=== PATIENT | female | born 1990 | race Caucasian/White ===

== ENCOUNTER 2016-12-01 11:11 | Emergency (ER) | payer OTHER ==
[2016-12-01 11:56] VITALS: BP 96/56
--- NOTE | 2016-12-01 12:24 | UC ---
Respiratory Complaint HPI - HPI Summary HPI Summary: COUGH X 7 DAYS + CHEST CONGESTION , NASAL CONGESTION , PND, SORE THROAT NO FEVER, NO CHILLS - History of Current Complaint Chief Complaint: UCGeneralIllness Stated Complaint: COUGH,SINUS,EARS Time Seen by Provider: 12/01/16 11:53 Hx Obtained From: Patient Hx Last Menstrual Period: 11/10/16 Onset/Duration: Gradual Onset, Lasting Days - 7, Still Present Timing: Constant Severity Initially: Moderate Severity Currently: Moderate Character: Cough: Nonproductive Aggravating Factors: Exertion, Deep Breaths Alleviating Factors: Nothing Associated Signs And Symptoms: Positive: URI, Nasal Congestion. Negative: Fever , Chills, Wheezing - Allergies/Home Medications Allergies/Adverse Reactions: Allergies Allergy/AdvReac Type Severity Reaction Status Date / Time Amoxicillin Allergy Unknown Verified 04/11/16 10:47 Reaction Details Shellfish Allergy Allergy Itching Verified 06/07/16 20:28 Home Medications: Home Medications Dextromethorphan-Phenylephrine [Day Time Multi-Symptom Co] 1 cap PO Q6HR PRN [History Confirmed 12/01/16] Paroxetine HCl [Paxil] 10 mg PO DAILY 12/01/16 [History Confirmed 12/01/16] PMH/Surg Hx/FS Hx/Imm Hx Respiratory History Of: Reports: Asthma - sports induced Other History Of: Negative For: Anticoagulant Therapy - Surgical History Surgical History: Yes Surgery Procedure, Year, and Place: Ear tubes ,. t/a '96 - Family History Known Family History: Positive: None Negative: Diabetes - Social History Alcohol Use: Rare Substance Use Type: None Smoking Status (MU): Former Smoker When Did the Patient Quit Smoking/Using Tobacco: 7 years ago Review of Systems Constitutional: Negative Skin: Negative Eyes: Negative ENT: Nasal Discharge Respiratory: Cough Cardiovascular: Negative Gastrointestinal: Negative Genitourinary: Negative All Other Systems Reviewed And Are Negative: Yes Physical Exam Triage Information Reviewed: Yes Appearance: Well-Appearing, No Pain Distress, Well-Nourished Vital Signs: Initial Vital Signs Temp 98.0 F 12/01/16 11:40 Pulse 61 12/01/16 11:40 Resp 16 12/01/16 11:40 BP 96/56 12/01/16 11:40 Pulse Ox 100 12/01/16 11:40 Vital Signs Reviewed: Yes Eyes: Positive: Conjunctiva Clear ENT: Positive: Normal ENT inspection, Hearing grossly normal, Pharynx normal, Nasal congestion, Nasal drainage, TMs normal Neck: Positive: Supple, Nontender, No Lymphadenopathy Respiratory: Positive: Chest non-tender, Lungs clear, Normal breath sounds Cardiovascular: Positive: RRR, No Murmur, Pulses Normal UC Diagnostic Evaluation - Laboratory O2 Sat by Pulse Oximetry: 100 Respiratory Course/Dx - Differential Dx/Diagnosis Provider Diagnoses: VIRAL BRONCHITIS Discharge - Discharge Plan Condition: Stable Disposition: HOME Prescriptions: Guaifenesin-Codeine [Cheratussin AC] 10 ml PO Q8H #120 ml MDD 30 ML Patient Education Materials: Acute Bronchitis (ED) Forms: *Work Release Referrals: JEET Dukes [Primary Care Provider] - If Needed
== END 2016-12-01 12:33 | disposition home or self-care (01) ==
LOC: UCCORT 11:11
DX: J20.8 Acute bronchitis due to other specified organisms (principal); Z88.0 Allergy status to penicillin; Z87.891 Personal history of nicotine dependence
CPT/HCPCS: 99212; G0463

== ENCOUNTER 2016-12-28 13:22 | Emergency (ER) | payer OTHER ==
[2016-12-28 14:13] VITALS: BP 109/48
--- NOTE | 2016-12-28 14:44 | UC ---
Back Pain HPI - HPI Summary HPI Summary: lifted heavy crate of bananas today at work, was twisting as she lifted, felt a sudden pull in upper lumbar area. Pain worsened as time went on, now also has a painful "knot" over left scapula. No fall. No prior back injuries. No radiation of pain. - History of Current Complaint Chief Complaint: UCBackPain Stated Complaint: BACK INJURY-WC Time Seen by Provider: 12/28/16 14:34 Hx Obtained From: Patient Hx Last Menstrual Period: 3 weeks ago spotted, mirena ?: No Onset/Duration: Sudden Onset, Lasting Hours - 6 Timing: Constant Severity Initially: Mild Severity Currently: Moderate Back Pain: Is Discrete @ - upper lumbar, bilat; also left scapula Character: Sharp, Aching, Spasmodic, Stiffness Aggravating: Movement, Bending Alleviating: Rest, Position Associated Signs And Symptoms: Positive: Pain with Weight Bearing. Negative: Swelling, Bruising, Fever, Weakness, Numbness, Tingling, Abdominal Pain, Flank Pain, Bladder Incontinence, Bowel Incontinence, Weight Loss Related History: Occupational Injury - Risk Factors AAA Risk Factors: Negative TAD Risk Factors: Negative Cauda Equina Risk Factors: Negative Epidural Abscess Risk Factors: Negative - Allergies/Home Medications Allergies/Adverse Reactions: Allergies Allergy/AdvReac Type Severity Reaction Status Date / Time Amoxicillin Allergy Unknown Verified 12/28/16 14:13 Reaction Details Shellfish Allergy Allergy Itching Verified 12/28/16 14:13 PMH/Surg Hx/FS Hx/Imm Hx Respiratory History Of: Reports: Asthma - sports induced Other History Of: Negative For: Anticoagulant Therapy - Surgical History Surgical History: Yes Surgery Procedure, Year, and Place: Ear tubes ,. t/a '96 - Family History Known Family History: Negative: Diabetes - Social History Occupation: Employed Full-time Lives: With Family Alcohol Use: Rare Substance Use Type: None Smoking Status (MU): Former Smoker When Did the Patient Quit Smoking/Using Tobacco: 7 years ago Review of Systems Constitutional: Negative Skin: Negative Eyes: Negative ENT: Negative Respiratory: Negative Cardiovascular: Negative Gastrointestinal: Negative Genitourinary: Negative Motor: Negative Neurovascular: Negative Musculoskeletal: Arthralgia, Decreased ROM, Myalgia Neurological: Negative Psychological: Negative All Other Systems Reviewed And Are Negative: Yes Physical Exam Triage Information Reviewed: Yes Appearance: Well-Appearing, No Pain Distress, Well-Nourished Vital Signs: Initial Vital Signs Temp 98.5 F 12/28/16 14:10 Pulse 67 12/28/16 14:10 Resp 14 12/28/16 14:10 BP 109/48 12/28/16 14:10 Pulse Ox 99 12/28/16 14:10 Vital Signs Reviewed: Yes Eye Exam: Normal Neck exam: Normal Neck: Positive: Supple, Nontender Respiratory Exam: Normal Cardiovascular Exam: Normal Musculoskeletal Exam: Other - mild tenderness to palpation both lumbar areas. Palpable muscle spasm over left scapula. Limited bending and twisting due to pain. Stiff, slow gait. Hard to get up from chair. Neurological Exam: Normal Psychological Exam: Normal Skin Exam: Normal Diagnostics - Laboratory Diagnostic Studies Completed/Ordered: xray LS spine neg Back Pain Course/Dx - Differential Dx/Diagnosis Differential Diagnosis/HQI/PQRI: Fracture, Herniated Disc, Strain Provider Diagnoses: low back strain Discharge - Discharge Plan Condition: Stable Disposition: HOME Prescriptions: Cyclobenzaprine TAB* [Flexeril TAB*] 10 mg PO TID PRN #30 tab PRN Reason: muscle spasm Tramadol HCl [Ultram] 1 - 2 tab PO TID PRN #30 tab MDD 6 tab PRN Reason: Pain Patient Education Materials: Low Back Strain (ED), Lower Back Exercises (ED) Referrals: JEET Dukes [Primary Care Provider] -
--- NOTE | 2016-12-28 15:01 | RAD ---
HISTORY: Low back pain after lifting COMPARISONS: None VIEWS: 5 , Frontal, lateral, coned-down lateral sacral, and bilateral oblique views of the lumbar spine. FINDINGS: ALIGNMENT: There is mild scoliotic curvature of the spine VERTEBRAL BODIES: The vertebral body heights are normal. The interpedicular distances are normal. JOINTS: The facet joints are normal. INTERVERTEBRAL DISCS: The intervertebral disc heights are normal. SOFT TISSUE: Unremarkable. OTHER: An IUD is noted. The lung bases are clear. IMPRESSION: SCOLIOSIS. NO ACUTE OSSEOUS INJURY.
== END 2016-12-28 15:59 | disposition home or self-care (01) ==
LOC: UCCORT 13:22
DX: S39.012A Strain of muscle, fascia and tendon of lower back, initial encounter (principal); X50.0XXA Overexertion from strenuous movement or load, initial encounter; Y93.89 Activity, other specified; Y92.9 Unspecified place or not applicable; Y99.0 Civilian activity done for income or pay; Z88.0 Allergy status to penicillin; Z87.891 Personal history of nicotine dependence
CPT/HCPCS: 72110; 99212; G0463

== ENCOUNTER 2017-01-02 09:23 | Emergency (ER) | payer OTHER ==
[2017-01-02 10:17] VITALS: BP 101/68
--- NOTE | 2017-01-02 10:36 | UC ---
Back Pain HPI - HPI Summary HPI Summary: follow-up work injury. Lifted a heavy object at work on 12/28, had sudden onset of low back pain that worsened as time went on. Evaluated here that day, L-S spine negative except mild scoliosis. Sent home on Tramadol and Flexeril. She reports that the meds help, but she is still having significant pain and limitation of movement. Does not feel like she can go to work and do any lifting , bending, twisting which is what her job entails. She is trying to do the exercises listed in her discharge pcket, but having a lot of spasm and pain. - History of Current Complaint Chief Complaint: UCBackPain Stated Complaint: BACK PAIN RECHECK Time Seen by Provider: 01/02/17 10:12 Hx Obtained From: Patient Hx Last Menstrual Period: Beginning of Dec. Onset/Duration: Gradual Onset, Lasting Days - 5 Timing: Constant Severity Initially: Mild Severity Currently: Moderate Back Pain: Is Discrete @ - upper lumbar; recently she feels pain and spasm up higher, between shoulder blades as well Character: Aching, Spasmodic, Stiffness Aggravating: Movement, Lifting, Bending Alleviating: Rest, Heat Associated Signs And Symptoms: Positive: Pain with Weight Bearing. Negative: Swelling, Redness, Bruising, Fever, Weakness, Numbness, Tingling, Abdominal Pain , Flank Pain, Bladder Incontinence, Bowel Incontinence, Weight Loss - Risk Factors AAA Risk Factors: Negative TAD Risk Factors: Negative Cauda Equina Risk Factors: Negative Epidural Abscess Risk Factors: Negative - Allergies/Home Medications Allergies/Adverse Reactions: Allergies Allergy/AdvReac Type Severity Reaction Status Date / Time Amoxicillin Allergy Unknown Verified 01/02/17 10:17 Reaction Details Shellfish Allergy Allergy Itching Verified 01/02/17 10:17 PMH/Surg Hx/FS Hx/Imm Hx Respiratory History Of: Reports: Asthma - sports induced Other History Of: Negative For: Anticoagulant Therapy - Surgical History Surgical History: Yes Surgery Procedure, Year, and Place: Ear tubes ,. t/a - Family History Known Family History: Negative: Diabetes - Social History Occupation: Employed Full-time Lives: With Family Alcohol Use: Rare Substance Use Type: None Smoking Status (MU): Former Smoker When Did the Patient Quit Smoking/Using Tobacco: 7 years ago Review of Systems Constitutional: Negative Skin: Negative Eyes: Negative ENT: Negative Respiratory: Negative Cardiovascular: Negative Gastrointestinal: Negative Genitourinary: Negative Motor: Negative Neurovascular: Negative Musculoskeletal: Arthralgia, Decreased ROM, Myalgia Neurological: Negative Psychological: Negative All Other Systems Reviewed And Are Negative: Yes Physical Exam Triage Information Reviewed: Yes Appearance: Well-Appearing, No Pain Distress, Well-Nourished Vital Signs: Initial Vital Signs Temp 97.9 F 01/02/17 10:09 Pulse 78 01/02/17 10:09 Resp 16 01/02/17 10:09 BP 101/68 01/02/17 10:09 Vital Signs Reviewed: Yes Eye Exam: Normal Neck exam: Normal Neck: Positive: Supple, Nontender Respiratory Exam: Normal Cardiovascular Exam: Normal Musculoskeletal Exam: Other - mild tenderness to palpation of bilat lumbar muscles. Palpable muscle tightness. Also tight up between scapulae. Hurts to bend, twist. STiff gait. Hard to get up from chair Neurological Exam: Normal Psychological Exam: Normal Skin Exam: Normal Back Pain Course/Dx - Course Course Of Treatment: refer to chiropractor; off work for 1 week - Differential Dx/Diagnosis Differential Diagnosis/HQI/PQRI: Strain, Sprain Provider Diagnoses: low back strain Discharge - Discharge Plan Condition: Stable Disposition: HOME Prescriptions: Cyclobenzaprine TAB* [Flexeril TAB*] 10 mg PO TID PRN #20 tab PRN Reason: back spasms Tramadol HCl [Ultram] 1 - 2 tab PO Q6HR PRN #30 tab MDD 6 tab PRN Reason: Pain Patient Education Materials: Low Back Strain (ED) Forms: *Work Release Referrals: JEET Dukes [Primary Care Provider] - Dakota SALAS,Lorenzo Armas [Doctor of Chiropractic] -
== END 2017-01-02 10:41 | disposition home or self-care (01) ==
LOC: UCCORT 09:23
DX: S39.012D Strain of muscle, fascia and tendon of lower back, subsequent encounter (principal); X50.0XXD Overexertion from strenuous movement or load, subsequent encounter; Z88.1 Allergy status to other antibiotic agents; Z87.891 Personal history of nicotine dependence
CPT/HCPCS: 99212; G0463

== ENCOUNTER 2017-01-10 09:36 | Emergency (ER) | payer OTHER ==
[2017-01-10 09:47] VITALS: BP 95/62
--- NOTE | 2017-01-10 09:58 | UC ---
Back Pain HPI - HPI Summary HPI Summary: 12/28 and 01/02 patient was seen here for back injury at work after lifting a heavy box on 12/28. She returned to work yesterday and within 2 hours her upper and lower back pain increased 7/10 and reports 9/10 pain last night. Report radiation to right glute. Difficult time sleeping last night. No fevers or chills. Denies numbness or tingling. No incontinence. She has been seeing a chiropractor 2-3 x/week and reports improvement. Reports job is all lifting and must be able to lift 30lbs to be able to return to work. - History of Current Complaint Chief Complaint: UCBackPain Stated Complaint: RE-CHECK BACK W/C Time Seen by Provider: 01/10/17 09:56 Hx Obtained From: Patient Hx Last Menstrual Period: 01/05/17 Onset/Duration: Sudden Onset - 10 days ago Pain Intensity: 6 Pain Scale Used: 0-10 Numeric Character: Dull, Aching, Throbbing, Spasmodic Aggravating: Movement, Lifting, Bending Alleviating: Rest, Heat, OTC Meds Associated Signs And Symptoms: Positive: Negative Related History: Occupational Injury - Risk Factors AAA Risk Factors: Negative TAD Risk Factors: Negative Cauda Equina Risk Factors: Negative Epidural Abscess Risk Factors: Negative - Allergies/Home Medications Allergies/Adverse Reactions: Allergies Allergy/AdvReac Type Severity Reaction Status Date / Time Amoxicillin Allergy Unknown Verified 01/02/17 10:17 Reaction Details Shellfish Allergy Allergy Itching Verified 01/02/17 10:17 PMH/Surg Hx/FS Hx/Imm Hx Previously Healthy: Yes Respiratory History Of: Reports: Asthma - sports induced Other History Of: Negative For: Anticoagulant Therapy - Surgical History Surgical History: Yes Surgery Procedure, Year, and Place: Ear tubes ,. t/a - Family History Known Family History: Negative: Diabetes - Social History Occupation: Employed Full-time Alcohol Use: Rare Substance Use Type: None Smoking Status (MU): Former Smoker Have You Smoked in the Last Year: No When Did the Patient Quit Smoking/Using Tobacco: 7 years ago - Immunization History Hx Tetanus, Diphtheria Vaccination: Yes Vaccination Up to Date: Yes Review of Systems Constitutional: Other - upper nad lower back pain Skin: Negative Eyes: Negative ENT: Negative Respiratory: Negative Cardiovascular: Negative Gastrointestinal: Negative Genitourinary: Negative Motor: Negative Neurovascular: Negative Musculoskeletal: Decreased ROM Neurological: Negative Psychological: Negative All Other Systems Reviewed And Are Negative: Yes Physical Exam Triage Information Reviewed: Yes Appearance: Well-Appearing, Well-Nourished, Pain Distress - mild Vital Signs: Initial Vital Signs Temp 97.9 F 01/10/17 09:42 Pulse 91 01/10/17 09:42 Resp 16 01/10/17 09:42 BP 95/62 01/10/17 09:42 Pulse Ox 100 01/10/17 09:42 Vital Signs Reviewed: Yes Neck: Positive: Supple, Nontender, No Lymphadenopathy Respiratory: Positive: Chest non-tender, Lungs clear, Normal breath sounds, No respiratory distress, No accessory muscle use Cardiovascular: Positive: RRR, No Murmur, Pulses Normal, Brisk Capillary Refill Musculoskeletal: Positive: Strength Intact, No Edema, ROM Limited @ - guarded with flexion and extension but has almost full ROM. Tender to trapezius bilateral, spasms palpated, sacral tenderness. strength LE 5/5 throughout. Good sensation. Neurological: Positive: Alert Psychological Exam: Normal Skin Exam: Normal Back Pain Course/Dx - Course Course Of Treatment: 1. Re-check Back injury, returned to work yesterday and was unable to tolerate lifting. Plan for rest, cold, hot compresses, epsom salt baths, continue chiropractor and refer to PT. Return to work 6 days. - Differential Dx/Diagnosis Provider Diagnoses: 1. Re-check back injury. Low back strain with upper back spasms. Plan rest, refer to physical therapy. no work until 01/16/17 Discharge - Discharge Plan Condition: Stable Disposition: HOME Patient Education Materials: Low Back Strain (ED), Lower Back Exercises (ED) Forms: *Work Release Referrals: JEET Gonzáles [Primary Care Provider] - (please follow up within 1 week. ) Additional Instructions: . Continue to rest, hot and cold packs, epsom salt baths DAILY. Daily gentle exercises. If you develop any worsening or concerning symptoms suck as numbness, tingling, weakness, urinary or fecal incontinence, fever or chills - return to urgent care , see your primary or go to the emergency department. You have been referred to physical therapy.
== END 2017-01-10 10:33 | disposition home or self-care (01) ==
LOC: UCCORT 09:36
DX: S39.012D Strain of muscle, fascia and tendon of lower back, subsequent encounter (principal); X50.0XXD Overexertion from strenuous movement or load, subsequent encounter; X50.9XXD Other and unspecified overexertion or strenuous movements or postures, subsequent encounter; M62.830 Muscle spasm of back; Z88.1 Allergy status to other antibiotic agents; Z87.891 Personal history of nicotine dependence
CPT/HCPCS: 99211; G0463

== ENCOUNTER 2017-01-30 10:14 | Emergency (ER) | payer OTHER ==
--- NOTE | 2017-01-30 10:41 | UC ---
Back Pain HPI - HPI Summary HPI Summary: complaint of lower back pain that started 12/28/16 after lifting lifting case of bananas at work at [employer] seen at urgent care several times when she is not working pain is managable 12/16 and can take NSAIDS if she has an acitve day or works the pain increases pain is in lower back and is an aching pain that radiates into either leg sometimes radiates into upper back denies numbness and tingling in extremities denies incontinence and fever taking NSAIDS, occasional tramadol anf flexeril when not at work with some relief didn't go to physical therapy because her worker.s comp wont pay for chiropracter and PT simultaneously has been getting chiropractic treatments 2x week without effect. - History of Current Complaint Chief Complaint: UCBackPain Stated Complaint: RE CHECK BACK PAIN-WC Time Seen by Provider: 01/30/17 10:29 Hx Obtained From: Patient Hx Last Menstrual Period: 01/04/17 Aggravating: Movement, Lifting Alleviating: Rest, OTC Meds Associated Signs And Symptoms: Positive: Negative - Allergies/Home Medications Allergies/Adverse Reactions: Allergies Allergy/AdvReac Type Severity Reaction Status Date / Time Amoxicillin Allergy Intermediate Rash And Verified 01/30/17 10:29 Itching Shellfish Allergy Allergy Itching Verified 01/30/17 10:29 PMH/Surg Hx/FS Hx/Imm Hx Previously Healthy: No - lower back pain Respiratory History Of: Reports: Asthma - sports induced Other History Of: Negative For: Anticoagulant Therapy - Surgical History Surgical History: Yes Surgery Procedure, Year, and Place: Ear tubes ,. t/a - Family History Known Family History: Negative: Diabetes - Social History Occupation: Employed Full-time Lives: With Family Alcohol Use: Rare Substance Use Type: None Smoking Status (MU): Former Smoker Length of Time of Smoking/Using Tobacco: 2 yrs Have You Smoked in the Last Year: No When Did the Patient Quit Smoking/Using Tobacco: 2009 - Immunization History Hx Tetanus, Diphtheria Vaccination: Yes Vaccination Up to Date: Yes Review of Systems Constitutional: Negative Skin: Negative Eyes: Negative ENT: Negative Respiratory: Negative Cardiovascular: Negative Gastrointestinal: Negative Genitourinary: Negative Motor: Negative Musculoskeletal: Other: - lower back pain Neurological: Negative Psychological: Negative All Other Systems Reviewed And Are Negative: Yes Physical Exam Triage Information Reviewed: Yes Appearance: No Pain Distress, Well-Nourished Vital Signs: Initial Vital Signs Temp 98 F 01/30/17 10:20 Pulse 78 01/30/17 10:20 Resp 14 01/30/17 10:20 BP 101/74 01/30/17 10:20 Pulse Ox 100 01/30/17 10:20 Vital Signs Reviewed: Yes Eyes: Positive: Conjunctiva Clear ENT: Positive: Pharynx normal, TMs normal Neck: Positive: No Lymphadenopathy, Other: - no cspine tenderness Respiratory: Positive: Lungs clear, Normal breath sounds, No respiratory distress Cardiovascular: Positive: RRR, No Murmur, Pulses Normal Abdomen Description: Positive: Nontender, Soft Bowel Sounds: Positive: Present Musculoskeletal: Positive: No Edema, Other: - Spine have no noted deformities or signs of inflammation. Curvature of thoracic, and lumbar spine are within normal limits. Bony features of shoulders and hips are of equal height bilaterally. Posture is upright, and gait is smooth and normal. Spinous processes of T1-L5 palpable, midline, and non-tender; No step-offs. lumbar paraspinal tenderness right worse than left limited ROM- Flexion, extension, and rotation and lateral movement ot the right causes pain. Neurological: Positive: Alert, Other: - negative SLR patellar reflexes intact equla strength in BLE Psychological Exam: Normal Skin Exam: Normal Back Pain Course/Dx - Course Course Of Treatment: exam completed. will refer to PT for further evaluation and treatment. refer to orthopedics if no improvement. no red flags to warrant imaging. continue flexeril NSAIDS/ trmamdol when needed - Differential Dx/Diagnosis Differential Diagnosis/HQI/PQRI: Herniated Disc, Strain, Sprain Provider Diagnoses: lower back pain with radiculopathy Discharge - Discharge Plan Condition: Stable Disposition: HOME Prescriptions: Cyclobenzaprine TAB* [Flexeril 10 MG TAB*] 10 mg PO TID PRN #30 tab PRN Reason: muscle spasm Tramadol HCl [Ultram] 1 - 2 tab PO TID PRN #30 tab MDD 6 tab PRN Reason: Pain Patient Education Materials: Lumbar Radiculopathy (ED) Forms: *Work Release Referrals: JEET Dukes [Primary Care Provider] - Olivier Lima MD [Medical Doctor] - Additional Instructions: Start flexeril as directed. Do not drink alcohol or drive while taking flexeril. Please call physical therapy for further evaluation and treatment. If no improvement please contact insurance account specialist for further evaluation. Take ibuprofen for fever or pain. Increase fluids and rest. Please review your discharge instructions. If your symptoms do not improve please call your primary care provider or return to urgent care.
[2017-01-30 10:50] VITALS: BP 101/74
== END 2017-01-30 11:02 | disposition home or self-care (01) ==
LOC: UCCORT 10:14
DX: M54.5 Low back pain (principal); M54.16 Radiculopathy, lumbar region; Z88.1 Allergy status to other antibiotic agents; Z87.891 Personal history of nicotine dependence
CPT/HCPCS: 99212; G0463

== ENCOUNTER 2017-03-31 15:25 | Emergency (ER) | payer OTHER ==
[2017-03-31 15:59] VITALS: BP 100/64
--- NOTE | 2017-03-31 16:53 | UC ---
Eye Complaint HPI - HPI Summary HPI Summary: LEFT EYE REDNESS EYE DISCHARGE AND UPPER LID SWELLING FOR TWO DAYS. MILD CONGESTION. NO FEVER. NO PAIN WITH EYE MOVEMENT. - History of Current Complaint Chief Complaint: UCEye Stated Complaint: LFT EYE IRRITATION Time Seen by Provider: 03/31/17 16:11 Hx Obtained From: Patient Hx Last Menstrual Period: 03/09/17 Onset/Duration: Gradual Onset, Lasting Days, Still Present Timing: Constant Severity Initially: Mild Severity Currently: Mild Location of Injury: Conjunctiva, Eye Lid (upper) Character: Dull Aggravating Factor(s): Nothing Alleviating Factor(s): Nothing Associated Signs And Symptoms: Positive: Drainage (Purulent), Swelling - UPPER LEFT LID. Negative: Vision Impairment Right, Vision Impairment Left, Fever - Risk Factors Penetrating Injury Risk Factor: Negative Acute Glaucoma Risk Factors: Negative Optic Artery Occlusion Risk Factors: Negative - Allergies/Home Medications Allergies/Adverse Reactions: Allergies Allergy/AdvReac Type Severity Reaction Status Date / Time Amoxicillin Allergy Intermediate Rash And Verified 03/31/17 15:59 Itching Shellfish Allergy Allergy Itching Verified 03/31/17 15:59 Home Medications: Home Medications Diclofenac [Zorvolex] 75 mg PO BID 03/31/17 [History Confirmed 03/31/17] Tizanidine HCl 4 mg PO TID 03/31/17 [History Confirmed 03/31/17] PMH/Surg Hx/FS Hx/Imm Hx Previously Healthy: Yes Respiratory History Of: Reports: Asthma - sports induced Other History Of: Negative For: Anticoagulant Therapy - Surgical History Surgical History: Yes Surgery Procedure, Year, and Place: Ear tubes ,. t/a - Family History Known Family History: Negative: Diabetes - Social History Occupation: Employed Full-time Lives: With Family Alcohol Use: Rare Substance Use Type: None Smoking Status (MU): Former Smoker Length of Time of Smoking/Using Tobacco: 2 yrs Have You Smoked in the Last Year: No When Did the Patient Quit Smoking/Using Tobacco: 7 years ago - Immunization History Hx Tetanus, Diphtheria Vaccination: Yes Vaccination Up to Date: Yes Review of Systems Constitutional: Negative Skin: Other - LEFT UPPER LID SELLING REDNESS Eyes: Eye Redness ENT: Negative Respiratory: Negative Cardiovascular: Negative Gastrointestinal: Negative Genitourinary: Negative Motor: Negative Neurovascular: Negative Musculoskeletal: Negative Neurological: Negative Psychological: Negative All Other Systems Reviewed And Are Negative: Yes Physical Exam Triage Information Reviewed: Yes Appearance: Well-Appearing, No Pain Distress, Well-Nourished Vital Signs: Initial Vital Signs Temp 98.8 F 03/31/17 15:50 Pulse 63 03/31/17 15:50 Resp 20 03/31/17 15:50 BP 100/64 03/31/17 15:50 Vital Signs Reviewed: Yes Eyes: Positive: Conjunctiva Inflamed - LEFT ENT: Positive: Normal ENT inspection, Hearing grossly normal, Nasal congestion, TMs normal Dental Exam: Normal Neck exam: Normal Neck: Positive: Supple, Nontender, No Lymphadenopathy Respiratory Exam: Normal Respiratory: Positive: Chest non-tender, Lungs clear, Normal breath sounds, No respiratory distress, No accessory muscle use Cardiovascular Exam: Normal Cardiovascular: Positive: RRR, No Murmur Abdominal Exam: Normal Musculoskeletal Exam: Normal Musculoskeletal: Positive: Strength Intact, ROM Intact Neurological Exam: Normal Psychological Exam: Normal Skin Exam: Normal Eye Complaint Course/Dx - Differential Dx/Diagnosis Differential Diagnosis/HQI/PQRI: Conjunctivitis, Corneal Abrasion, Periorbital Cellulitis, Uveitis, Other - STYE Provider Diagnoses: LEFT CONJUNCTIVITIS; LEFT UPPER LID STYE Discharge - Discharge Plan Condition: Stable Disposition: HOME Prescriptions: Azithromycin TAB* [Zithromax TAB (Z-AWAIS) 250 mg #6 tabs] 2 tab PO .TODAY, THEN 1 DAILY #1 awais Erythromycin OPTH OINT* 1 applic LEFT EYE TID #1 ophth.oint Patient Education Materials: Stye (ED), Conjunctivitis (ED) Referrals: JEET Dukes [Primary Care Provider] -
== END 2017-03-31 16:49 | disposition home or self-care (01) ==
LOC: UCCORT 15:25
DX: H10.9 Unspecified conjunctivitis (principal); H00.014 Hordeolum externum left upper eyelid; Z87.891 Personal history of nicotine dependence; Z88.1 Allergy status to other antibiotic agents
CPT/HCPCS: 99212; G0463

== ENCOUNTER 2017-09-20 08:32 | Emergency (ER) | payer OTHER ==
[2017-09-20 08:54] VITALS: BP 107/69
[2017-09-20] MEDS ORDERED: Acetaminophen TAB* 325 MG PO ONE (09:15)
--- NOTE | 2017-09-20 09:20 | UC ---
Respiratory Complaint HPI - HPI Summary HPI Summary: Congestion and myalgias since yesterday. She is healthy. Non smoker. no lung disease. - History of Current Complaint Chief Complaint: UCRespiratory Stated Complaint: FLU SXS Time Seen by Provider: 09/20/17 08:57 Hx Obtained From: Patient Hx Last Menstrual Period: 09/06/17 Onset/Duration: Gradual Onset, Lasting Hours Timing: Constant Severity Initially: Moderate Severity Currently: Moderate Character: Cough: Nonproductive Aggravating Factors: Deep Breaths, Recumbent Position Alleviating Factors: OTC Meds Associated Signs And Symptoms: Positive: URI, Nasal Congestion - Allergies/Home Medications Allergies/Adverse Reactions: Allergies Allergy/AdvReac Type Severity Reaction Status Date / Time Amoxicillin Allergy Intermediate Rash And Verified 09/20/17 08:48 Itching Shellfish Allergy Allergy Itching Verified 09/20/17 08:48 PMH/Surg Hx/FS Hx/Imm Hx Previously Healthy: Yes Other History Of: Negative For: Anticoagulant Therapy - Surgical History Surgical History: Yes Surgery Procedure, Year, and Place: Ear tubes ,. t/a - Family History Known Family History: Negative: Diabetes - Social History Lives: With Family Alcohol Use: Rare Substance Use Type: None Smoking Status (MU): Former Smoker Length of Time of Smoking/Using Tobacco: 2 yrs Have You Smoked in the Last Year: No When Did the Patient Quit Smoking/Using Tobacco: 7 years ago - Immunization History Most Recent Influenza Vaccination: not this season Hx Tetanus, Diphtheria Vaccination: Yes Vaccination Up to Date: Yes Review of Systems Constitutional: Fever, Fatigue Respiratory: Cough All Other Systems Reviewed And Are Negative: Yes Physical Exam Triage Information Reviewed: Yes Appearance: Well-Appearing, No Pain Distress, Well-Nourished Vital Signs: Initial Vital Signs Temp 98.9 F 09/20/17 08:49 Pulse 95 09/20/17 08:49 Resp 20 09/20/17 08:49 BP 107/69 09/20/17 08:49 Pulse Ox 100 09/20/17 08:49 Vital Signs Reviewed: Yes Eye Exam: Normal Eyes: Positive: Conjunctiva Clear ENT: Positive: Pharynx normal, Nasal congestion, TMs normal, Uvula midline. Negative: Pharyngeal erythema, Nasal drainage, TM bulging, TM dull, TM red, Tonsillar swelling, Tonsillar exudate, Trismus, Muffled voice, Hoarse voice, Dental tenderness, Sinus tenderness Neck: Positive: Supple, Nontender, No Lymphadenopathy. Negative: Nuchal Rigidity, Tenderness @, Enlarged Nodes @ Respiratory: Positive: Lungs clear, Normal breath sounds, No respiratory distress, No accessory muscle use. Negative: Respiratory distress, Decreased breath sounds, Accessory muscle use, Crackles, Rhonchi, Stridor, Wheezing Cardiovascular: Positive: RRR, No Murmur, Pulses Normal, Brisk Capillary Refill Abdomen Description: Positive: Soft. Negative: Distended, Guarding Musculoskeletal Exam: Normal Musculoskeletal: Positive: Strength Intact. Negative: ROM Intact, No Edema Neurological: Positive: Alert, Muscle Tone Normal Skin Exam: Normal Skin: Negative: rashes UC Diagnostic Evaluation - Laboratory O2 Sat by Pulse Oximetry: 100 Respiratory Course/Dx - Differential Dx/Diagnosis Provider Diagnoses: uri. viral illness. Discharge - Discharge Plan Condition: Good Disposition: HOME Patient Education Materials: Upper Respiratory Infection (ED) Referrals: JEET Dukes [Primary Care Provider] -
== END 2017-09-20 09:27 | disposition home or self-care (01) ==
LOC: UCCORT 08:32
DX: J06.9 Acute upper respiratory infection, unspecified (principal); B34.9 Viral infection, unspecified; Z88.1 Allergy status to other antibiotic agents; Z87.891 Personal history of nicotine dependence
CPT/HCPCS: 87502; 99211; A9270-GY; G0463

== ENCOUNTER 2018-01-28 07:27 | Emergency (ER) | payer OTHER ==
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
[2018-01-28 07:40] VITALS: BP 99/66
[2018-01-28] MEDS ORDERED: Ondansetron ODT TAB* 4 MG PO ONE (07:47)
--- NOTE | 2018-01-28 08:00 | UC ---
Abdominal Pain Male HPI - HPI Summary HPI Summary: 27 yo female with n/v/d since last PM 2 episodes of diarrhea 3 episodes of vomiting crampy abd pain minutes prior to vomiting but no pain otherwise here requesting work note no f/c mild headache or myalgias no UTI symptoms - History of Current Complaint Chief Complaint: UCGeneralIllness Stated Complaint: VOMITING Time Seen by Provider: 01/28/18 07:40 Hx Obtained From: Patient Onset/Duration: Gradual Onset, Lasting Hours Timing: Constant Severity Initially: Mild Severity Currently: Mild Pain Intensity: 0 - pain free at present Pain Scale Used: 0-10 Numeric Location: Diffuse Radiates: No Character: Cramping Aggravating Factor(s): Food Alleviating Factor(s): Rest Associated Signs And Symptoms: Positive: Decreased Appetite, Nausea, Vomiting, Diarrhea - Allergies/Home Medications Allergies/Adverse Reactions: Allergies Allergy/AdvReac Type Severity Reaction Status Date / Time amoxicillin Allergy Rash And Verified 01/28/18 07:34 Itching shellfish derived Allergy Itching Verified 01/28/18 07:34 Home Medications: Home Medications Baclofen TAB* [Lioresal TAB*] 20 mg PO TID 01/28/18 [History Confirmed 01/28/18 ] Nabumetone 01/28/18 [History] PMH/Surg Hx/FS Hx/Imm Hx Previously Healthy: Yes Other History Of: Negative For: Anticoagulant Therapy - Surgical History Surgical History: Yes Surgery Procedure, Year, and Place: Ear tubes ,. t/a - Family History Known Family History: Negative: Cardiac Disease, Hypertension, Diabetes, Renal Disease - Social History Alcohol Use: Rare Substance Use Type: None Smoking Status (MU): Former Smoker Length of Time of Smoking/Using Tobacco: 2 yrs Have You Smoked in the Last Year: No When Did the Patient Quit Smoking/Using Tobacco: 7 years ago - Immunization History Most Recent Influenza Vaccination: not this season Hx Tetanus, Diphtheria Vaccination: Yes Vaccination Up to Date: Yes Review of Systems Constitutional: Fatigue Skin: Negative Eyes: Negative ENT: Negative Respiratory: Negative Cardiovascular: Negative Gastrointestinal: Vomiting, Diarrhea, Nausea Genitourinary: Negative Motor: Negative Neurovascular: Negative Musculoskeletal: Negative Neurological: Negative Psychological: Negative Is Patient Immunocompromised?: No All Other Systems Reviewed And Are Negative: Yes Physical Exam Triage Information Reviewed: Yes Appearance: Well-Appearing, No Pain Distress, Well-Nourished Vital Signs: Initial Vital Signs Temp 98.7 F 01/28/18 07:33 Pulse 57 01/28/18 07:33 Resp 14 01/28/18 07:33 BP 99/66 01/28/18 07:33 Pulse Ox 100 01/28/18 07:33 Vital Signs Reviewed: Yes Eyes: Positive: Conjunctiva Clear ENT: Positive: Hearing grossly normal, Pharynx normal, Uvula midline. Negative : Nasal congestion, Nasal drainage, Trismus, Muffled voice, Hoarse voice Neck: Positive: Supple, Nontender, No Lymphadenopathy Respiratory: Positive: Lungs clear, Normal breath sounds, No respiratory distress, No accessory muscle use Cardiovascular: Positive: RRR, No Murmur Abdomen Description: Positive: Nontender, No Organomegaly. Negative: CVA Tenderness (R), CVA Tenderness (L) Bowel Sounds: Positive: Present, Hyperactive Musculoskeletal: Positive: ROM Intact, No Edema Neurological: Positive: Alert Psychological Exam: Normal Skin Exam: Normal Abd Pain Male Course/Dx - Differential Dx/Clinical Impression Provider Diagnoses: acute gastroenteritis Discharge - Sign-Out/Discharge Documenting (check all that apply): Discharge - Discharge Plan Condition: Stable Disposition: HOME Prescriptions: Ondansetron TAB* [Zofran Tab*] 4 mg PO Q6H PRN #4 tab PRN Reason: Nausea Patient Education Materials: Gastroenteritis (ED) Forms: *Work Release Referrals: JEET Dukes [Primary Care Provider] - If Needed Additional Instructions: rest fluids zofran as directed if needed for nausea recheck for worsening symptoms recheck if your abd pain becomes constant I suggest recheck tomorrow if not better - Billing Disposition and Condition Condition: STABLE Disposition: HOME
== END 2018-01-28 07:59 | disposition home or self-care (01) ==
LOC: UCCORT 07:27
DX: K52.9 Noninfective gastroenteritis and colitis, unspecified (principal); Z87.891 Personal history of nicotine dependence; Z88.3 Allergy status to other anti-infective agents
CPT/HCPCS: 99212; A9270-GY; G0463

== ENCOUNTER 2018-02-08 10:11 | Emergency (ER) | payer OTHER ==
[2018-02-08 10:40] VITALS: BP 99/66
--- NOTE | 2018-02-08 10:46 | UC ---
UC General HPI - HPI Summary HPI Summary: 27 year old female with concern for dehydration . was seen at [facility] yesterday and given 2 bags of fluids. States was out of work thru today. States is still not feeling well. Needs an extension to her note. Is able to drink fluids now, and was able to eat last night. States fingers were swollen a little today. Still does not feel well and would like work note extension. Had some nausea this AM. not ready to return to work . [ End ] - History of Current Complaint Chief Complaint: UCGeneralIllness Stated Complaint: DEHYDRATED Time Seen by Provider: 02/08/18 10:33 Hx Obtained From: Patient Hx Last Menstrual Period: 01/28/18 Onset/Duration: Gradual Onset Timing: Constant Onset Severity: Severe Current Severity: Mild Pain Intensity: 0 - Allergy/Home Medications Allergies/Adverse Reactions: Allergies Allergy/AdvReac Type Severity Reaction Status Date / Time amoxicillin Allergy Rash And Verified 02/08/18 10:32 Itching shellfish derived Allergy Itching Verified 02/08/18 10:32 PMH/Surg Hx/FS Hx/Imm Hx Previously Healthy: Yes Other History Of: Negative For: Anticoagulant Therapy - Surgical History Surgical History: Yes Surgery Procedure, Year, and Place: Ear tubes ,. t/a 96 - Family History Known Family History: Negative: Cardiac Disease, Hypertension, Diabetes, Renal Disease - Social History Occupation: Employed Full-time - [employer] in [place] Alcohol Use: Rare Substance Use Type: None Smoking Status (MU): Former Smoker Length of Time of Smoking/Using Tobacco: 2 yrs Have You Smoked in the Last Year: No When Did the Patient Quit Smoking/Using Tobacco: 1 years ago - Immunization History Most Recent Influenza Vaccination: not this season Hx Tetanus, Diphtheria Vaccination: Yes Vaccination Up to Date: Yes Review of Systems Constitutional: Fatigue Gastrointestinal: Nausea Is Patient Immunocompromised?: No All Other Systems Reviewed And Are Negative: Yes Physical Exam Triage Information Reviewed: Yes Appearance: Well-Appearing, No Pain Distress, Well-Nourished Vital Signs: Initial Vital Signs Temp 97.5 F 02/08/18 10:34 Pulse 62 02/08/18 10:34 Resp 18 02/08/18 10:34 BP 99/66 02/08/18 10:34 Pulse Ox 100 02/08/18 10:34 Vital Signs Reviewed: Yes Eye Exam: Normal ENT Exam: Normal ENT: Positive: TM dull Neck exam: Normal Respiratory Exam: Normal Cardiovascular Exam: Normal Musculoskeletal Exam: Normal Neurological Exam: Normal Psychological Exam: Normal Skin Exam: Normal Course/Dx - Course Course Of Treatment: feels improved com[ared to yesterday but not ready to return to work at her very active position. rest for a few more days . note for work . cont to push electrolytes - Differential Dx - Multi-Symptom Provider Diagnoses: Nausea/ vomiting / dehydration Discharge - Sign-Out/Discharge Documenting (check all that apply): Discharge - Discharge Plan Condition: Good Disposition: HOME Patient Education Materials: Dehydration (ED) Forms: *Work Release Referrals: JEET Dukes [Primary Care Provider] - If Needed - Billing Disposition and Condition Condition: GOOD Disposition: HOME
== END 2018-02-08 11:04 | disposition home or self-care (01) ==
LOC: UCCORT 10:11
DX: R11.2 Nausea with vomiting, unspecified (principal); E86.0 Dehydration; Z88.0 Allergy status to penicillin; Z91.013 Allergy to seafood; Z87.891 Personal history of nicotine dependence
CPT/HCPCS: 99211; G0463

== ENCOUNTER 2018-02-16 09:28 | Emergency (ER) | payer OTHER ==
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
[2018-02-16 10:02] VITALS: BP 99/65
[2018-02-16] MEDS ORDERED: Ketorolac INJ* 60 MG/2 ML VIAL IM ONE (10:14)
--- NOTE | 2018-02-16 10:14 | UC ---
Back Pain HPI - HPI Summary HPI Summary: pt injured her low back at work last year. she has had xrays and MRI. she is un the care [facility] plus [facility] orthopedics. she went back to work about 1 month ago and is c/o recurring pain in her low back. no specific injury but notes back to lifting up to 30#'s. - History of Current Complaint Chief Complaint: UCBackPain Stated Complaint: BACK PAIN W/C Time Seen by Provider: 02/16/18 10:06 Hx Obtained From: Patient Hx Last Menstrual Period: Mirena IUD Onset/Duration: Gradual Onset Timing: Constant Pain Intensity: 8 Character: Aching, Spasmodic Aggravating Factor(s): Movement Alleviating Factor(s): Rest Associated Signs And Symptoms: Positive: Other - no fever. Negative: Swelling, Weakness, Numbness, Tingling, Abdominal Pain, Flank Pain, Bladder Incontinence, Bowel Incontinence - Risk Factors AAA Risk Factors: Negative TAD Risk Factors: Negative Cauda Equina Risk Factors: Negative Epidural Abscess Risk Factors: Negative - Allergies/Home Medications Allergies/Adverse Reactions: Allergies Allergy/AdvReac Type Severity Reaction Status Date / Time amoxicillin Allergy Rash And Verified 02/16/18 09:59 Itching bee venom protein (honey bee) Allergy Localized Verified 02/16/18 09:59 Swelling shellfish derived Allergy Itching Verified 02/16/18 09:59 Home Medications: Home Medications Acetaminophen [Acetaminophen Extra Strength] 1,000 mg PO Q6H PRN 02/16/18 [ History Confirmed 02/16/18] Albuterol HFA INHALER* [Ventolin HFA Inhaler*] 1 - 2 puff INH Q4H PRN 02/16/18 [ History Confirmed 02/16/18] PMH/Surg Hx/FS Hx/Imm Hx - Additional Past Medical History Additional PMH: chronic back pain Other History Of: Negative For: Anticoagulant Therapy - Surgical History Surgical History: Yes Surgery Procedure, Year, and Place: Ear tubes ,. t/a - Family History Known Family History: Negative: Cardiac Disease, Hypertension, Diabetes, Renal Disease - Social History Occupation: Employed Full-time Alcohol Use: Rare Substance Use Type: None Smoking Status (MU): Former Smoker Length of Time of Smoking/Using Tobacco: 2 yrs Have You Smoked in the Last Year: No When Did the Patient Quit Smoking/Using Tobacco: 2017 - Immunization History Most Recent Influenza Vaccination: not this season Most Recent Tetanus Shot: 06/07/16 Hx Tetanus, Diphtheria Vaccination: Yes Vaccination Up to Date: Yes Review of Systems Constitutional: Negative Skin: Negative Eyes: Negative ENT: Negative Respiratory: Negative Cardiovascular: Negative Gastrointestinal: Negative Genitourinary: Negative Motor: Negative Neurovascular: Negative Musculoskeletal: Decreased ROM - low back with pain Neurological: Negative Psychological: Negative Is Patient Immunocompromised?: No All Other Systems Reviewed And Are Negative: Yes Physical Exam Triage Information Reviewed: Yes Appearance: Well-Appearing Vital Signs: Initial Vital Signs Temp 97.7 F 02/16/18 09:55 Pulse 82 02/16/18 09:55 Resp 17 02/16/18 09:55 BP 99/65 02/16/18 09:55 Pulse Ox 100 02/16/18 09:55 Vital Signs Reviewed: Yes Eyes: Positive: Conjunctiva Clear ENT: Positive: Normal ENT inspection Neck: Positive: Supple, Nontender, No Lymphadenopathy Respiratory: Positive: Lungs clear, Normal breath sounds Cardiovascular: Positive: RRR, No Murmur, Pulses Normal Abdomen Description: Positive: Nontender, No Organomegaly, Soft Bowel Sounds: Positive: Present Musculoskeletal: Positive: Other: - C-spine and back with no gross deformity, swelling or disccoloration. spine is non tender. ROM reduced to 50% in all directions in lumbar region. 5/5 strength and 2 + reflexes x4. slow but steady gait. no saddle anesthesia. Neurological: Positive: Alert Psychological: Positive: Age Appropriate Behavior Skin Exam: Normal Re-Evaluation - Re-Evaluation Second Eval Change: Improved - pt notes a little less discomfort Back Pain Course/Dx - Course Course Of Treatment: no concern for acute abdomen, caudau equina, infection or fx. hx/pe c/w acute flare of chronic low backi pain. pt has prescriptions for her back and was advised to resume that tx as directed because she is not taking them. she already has f/u with [facility] this month and [facility]. will take out of work today and return with restrictions to avoid lifting as pt identifies this as the cause of her pain. - Differential Dx/Diagnosis Provider Diagnoses: acute flare of chronic low back pain Discharge - Sign-Out/Discharge Documenting (check all that apply): Discharge - Discharge Plan Condition: Stable Disposition: HOME Patient Education Materials: Chronic Back Pain (ED) Forms: *Work Release Referrals: JEET Dukes [Primary Care Provider] - If Needed Additional Instructions: FOLLOW UP [facility] AND [facility] SCHEDULED OR SOONER IF ABLE - Billing Disposition and Condition Condition: STABLE Disposition: HOME
== END 2018-02-16 11:49 | disposition home or self-care (01) ==
LOC: UCCORT 09:28
DX: M54.5 Low back pain (principal); G89.29 Other chronic pain; Z87.891 Personal history of nicotine dependence; Z88.3 Allergy status to other anti-infective agents
CPT/HCPCS: 96372; 99211; G0463; J1885

== ENCOUNTER 2018-06-19 10:01 | Emergency (ER) | payer OTHER ==
[2018-06-19] MEDS ORDERED: NS 0.9% 1000 ML* 1,000 ML IV ONE (12:04)
[2018-06-19] MEDS ORDERED: diPHENhydraMINE IV* 50 MG/ML 1 ml VIAL (BENADRYL) IV ONE (12:04)
[2018-06-19] MEDS ORDERED: Ketorolac INJ* 30 MG/ML 1 ML VIAL IV PUSH ONE (12:04)
[2018-06-19] MEDS ORDERED: Metoclopramide IV* 5 MG/ML 2 ML VIAL IV ONE (12:04)
[2018-06-19 12:28] LABS: ABS Basophils 0 10^3/ul (0-0.2); ABS Eosinophils 0.1 10^3/ul (0-0.6); ABS Lymphocytes 1.3 10^3/ul (1.0-4.8); ABS Monocytes 0.4 10^3/ul (0-0.8); ABS Neutrophils 3.1 10^3/ul (1.5-7.7); ABS Nucleated RBC 0 10^3/ul; Eosinophil % 1.3 % (0-6); Hematocrit 40 % (35-47); Hemoglobin 13.5 g/dl (12.0-16.0); Lymphocyte % 26.3 % (25-47); Mean Corpuscular HGB Conc 34 g/dl (31-36); Mean Corpuscular Hemoglobin 33 pg (27-31); Mean Corpuscular Volume 97 fL (80-97); Mean Platelet Volume 9.6 um3 (7.4-10.4); Nucleated Red Blood Cells % 0; Platelet Count 149 10^3/ul (150-450); Red Blood Count 4.15 10^6/ul (4.00-5.40); Red Cell Distribution Width 13 % (10.5-15)
[2018-06-19 12:58] LABS: EGFR Non-African American 104.1 (>60)
--- NOTE | 2018-06-19 13:49 | ED ---
Headache - HPI Summary HPI Summary: This is scribe Yves Maradiaga documenting for aCrmelo Painting M.D. Patient is a 28 y/o F w/ c/o migraine onsetting today in the morning. Patient reports Hx of migraines w/ last episode being 10 years ago. Current Sx feel similar to prior episodes. Pain is described as pressure and is located behind eyes and at back of head. Patient reports feeling nauseous and notes pain is aggravated by light and loud sounds. She reports previously taking medication for migraines when Sx were present. On triage, pain is rated 7/10 and nothing is noted to alleviate Sx. She also notes erythematous bumps on the back of her head. She describes this area as tender and notes tipping head upwards and backwards aggravates pain as well. Amoxicillin allergy is noted in room. Other home medications and allergies are reviewed. I, Dr. Painting, personally performed the services described in this documentation as scribed in my presence and it is both accurate and complete. - History Of Current Complaint Chief Complaint: EDHeadache Stated Complaint: MIGRAINE Time Seen by Provider: 06/19/18 11:34 Hx Obtained From: Patient Hx Last Menstrual Period: Mirena IUD Onset/Duration: Started hours ago - migraine onset this morning, Started days ago - noticed erythematous bumps at back of head four days ago Currently Pain Is: Current Pain Scale(0-10)= - 7/10 Timing: Constant Character: Pressure Location of Headache: Parietal, Other: - pain behind eyes Aggravating Factor: Bright Lights, Other - lound sounds, tipping head up and backwards Allevating Factors: Nothing Associated Signs And Symptoms: Other (Noted In Comments) - erythematous bumps at back of head; photophobia; sensitivity to loud sounds - Allergies/Home Medications Allergies/Adverse Reactions: Allergies Allergy/AdvReac Type Severity Reaction Status Date / Time amoxicillin Allergy Rash And Verified 02/16/18 09:59 Itching bee venom protein (honey bee) Allergy Localized Verified 02/16/18 09:59 Swelling shellfish derived Allergy Itching Verified 02/16/18 09:59 Home Medications: Home Medications DEPO-Provera* 150 mg IM SEE INSTRUCTIONS 06/19/18 [History Confirmed 06/19/18] Meloxicam 15 mg PO DAILY 06/19/18 [History Confirmed 06/19/18] Methocarbamol TAB* [Robaxin 500 MG TAB*] 500 mg PO TID PRN 06/19/18 [History Confirmed 06/19/18] PMH/Surg Hx/FS Hx/Imm Hx Endocrine/Hematology History: Denies: Hx Anticoagulant Therapy, Hx Blood Disorders Respiratory History: Reports: Hx Asthma - sports induced - Surgical History Surgery Procedure, Year, and Place: Ear tubes ,. t/a Infectious Disease History: No Infectious Disease History: Denies: Hx Clostridium Difficile, Hx Hepatitis, Hx Human Immunodeficiency Virus (HIV), Hx of Known/Suspected MRSA, Hx Shingles, Hx Tuberculosis, Hx Known/ Suspected VRE, Hx Known/Suspected VRSA, History Other Infectious Disease, Traveled Outside the [place] in Last 30 Days - Family History Known Family History: Negative: Cardiac Disease, Hypertension, Diabetes, Renal Disease - Social History Alcohol Use: Rare Substance Use Type: Reports: None Smoking Status (MU): Former Smoker Length of Time of Smoking/Using Tobacco: 2 yrs Have You Smoked in the Last Year: No Review of Systems Positive: Photophobia Positive: Other - sensitivity to loud sounds Positive: Other - erythematous bumps at back of the head Positive: Headache - located behind eyes and at back of head All Other Systems Reviewed And Are Negative: Yes Physical Exam - Summary Physical Exam Summary: Appearance: The patient is well-nourished in no acute distress and in no acute pain. Skin: The skin is warm and dry and skin color reflects adequate perfusion. Erythematous, raised, and tender area at right parietal region, approximately 1.5 cm in diameter. Tender posterior cervical lymphadenopathy; no meningeal cysts are noted. HEENT: The head is normocephalic and atraumatic. The pupils are equal and reactive. The conjunctivae are clear and without drainage. Nares are patent and without drainage. Mouth reveals moist mucous membranes and the throat is without erythema and exudate. The external ears are intact. The ear canals are patent and without drainage. The tympanic membranes are intact. Neck: The neck is supple with full range of motion and non-tender. There are no carotid bruits. There is no neck vein distension. Respiratory: Chest is non-tender. Lungs are clear to auscultation and breath sounds are symmetrical and equal. Cardiovascular: Heart is regular rate and rhythm. There is no murmur or rub auscultated. There is no peripheral edema and pulses are symmetrical and equal. Abdomen: The abdomen is soft and non-tender. There are normal bowel sounds heard in all four quadrants and there is no organomegaly palpated. Musculoskeletal: There is no back tenderness noted. Extremities are non-tender with full range of motion. There is good capillary refill. There is no peripheral edema or calf tenderness elicited. Neurological: Patient is alert and oriented to person, place and time. The patient has symmetrical motor strength in all four extremities. Cranial nerves are grossly intact. Deep tendon reflexes are symmetrical and equal in all four extremities. Psychiatric: The patient has an appropriate affect and does not exhibit any anxiety or depression. Triage Information Reviewed: Yes Vital Signs On Initial Exam: Initial Vitals Temp Pulse Resp BP Pulse Ox 99.6 F 49 16 95/59 99 06/19/18 10:11 06/19/18 10:11 06/19/18 10:11 06/19/18 10:11 06/19/18 10:11 Vital Signs Reviewed: Yes Diagnostics - Vital Signs Vital Signs Temp Pulse Resp BP Pulse Ox 06/19/18 10:11 99.6 F 49 16 95/59 99 - Laboratory Lab Results: Lab Results 06/19/18 06/19/18 Range/Units 12:16 12:16 WBC 5.0 (3.5-10.8) 10^3/ul RBC 4.15 (4.00-5.40) 10^6/ul Hgb 13.5 (12.0-16.0) g/dl Hct 40 (35-47) % MCV 97 (80-97) fL MCH 33 H (27-31) pg MCHC 34 (31-36) g/dl RDW 13 (10.5-15) % Plt Count 149 L (150-450) 10^3/ul MPV 9.6 (7.4-10.4) um3 Neut % (Auto) 62.8 (38-83) % Lymph % (Auto) 26.3 (25-47) % [place] % (Auto) 8.7 H (0-7) % Eos % (Auto) 1.3 (0-6) % Baso % (Auto) 0.9 (0-2) % Absolute Neuts (auto) 3.1 (1.5-7.7) 10^3/ul Absolute Lymphs (auto) 1.3 (1.0-4.8) 10^3/ul Absolute Monos (auto) 0.4 (0-0.8) 10^3/ul Absolute Eos (auto) 0.1 (0-0.6) 10^3/ul Absolute Basos (auto) 0 (0-0.2) 10^3/ul Absolute Nucleated RBC 0 10^3/ul Nucleated RBC % 0 Sodium 138 (135-145) mmol/L Potassium 4.2 (3.5-5.0) mmol/L Chloride 107 (101-111) mmol/L Carbon Dioxide 27 (22-32) mmol/L Anion Gap 4 (2-11) mmol/L BUN 16 (6-24) mg/dL Creatinine 0.67 (0.51-0.95) mg/dL Est GFR ( Amer) 125.9 (>60) Est GFR (Non-Af Amer) 104.1 (>60) BUN/Creatinine Ratio 23.9 H (8-20) Glucose 86 (70-100) mg/dL Calcium 9.3 (8.6-10.3) mg/dL Total Bilirubin 0.50 (0.2-1.0) mg/dL AST 14 (13-39) U/L ALT 14 (7-52) U/L Alkaline Phosphatase 51 (34-104) U/L C-Reactive Protein < 1.00 (<8.01) mg/L Total Protein 6.8 (6.4-8.9) g/dL Albumin 4.3 (3.2-5.2) g/dL Globulin 2.5 (2-4) g/dL Albumin/Globulin Ratio 1.7 (1-3) Result Diagrams: 06/19/18 12:16 18 12:16 Lab Statement: Any lab studies that have been ordered have been reviewed, and results considered in the medical decision making process. Re-Evaluation - Re-Evaluation First Eval Re-Evaluation Time: 14:29 Comment: Discussed results of tests with patient. Patient reports feeling better. She will be discharged to home and follow up with PCP in 2-3 days. She is agreeable with plan. Headache Course/Dx - Course Course Of Treatment: Ms. Ro presented complaining of a migraine headache. She had a history of migraine headaches but has not had one in 10 years. She does state that this is her typical migraine headache which is frontal and occipital, causing photophobia and causing nausea. She has not vomited. She also has a sore area on the occiput. She was found to have a small area of cellulitis on her occiput with some tender posterior cervical lymphadenopathy. I think this is likely triggered a migraine she has no meningeal signs or leukocytosis or fever. She improved greatly with a migraine cocktail of IV normal saline, Benadryl, Reglan and ketorolac. She was given a prescription for Keflex. - Diagnoses Provider Diagnoses: Migraine, Headache, Cellulitis of head or scalp Discharge - Sign-Out/Discharge Documenting (check all that apply): Patient Departure - discharge - Discharge Plan Condition: Stable Disposition: HOME Prescriptions: Clindamycin HCl 300 mg PO QID #28 capsule Patient Education Materials: Cellulitis (ED), Migraine Headache (ED) Forms: *Work Release Referrals: [facility] [Outside] - 2 Days Additional Instructions: Return to ED for any new or worsening symptoms. Follow up with primary care physician in 2-3 days. - Billing Disposition and Condition Condition: STABLE Disposition: Home
[2018-06-19 15:23] VITALS: BP 108/62
== END 2018-06-19 15:22 | disposition home or self-care (01) ==
LOC: ED 10:01
DX: G43.909 Migraine, unspecified, not intractable, without status migrainosus (principal); L03.811 Cellulitis of head [any part, except face]; Z87.891 Personal history of nicotine dependence; Z88.3 Allergy status to other anti-infective agents
CPT/HCPCS: 36415; 80053; 85025; 86140; 96361; 96374; 96375; 99282; J1200; J1885; J2765

== ENCOUNTER → 2018-09-01 12:57 | Emergency (ER) | payer OTHER ==
--- NOTE | 2018-09-01 14:50 | RAD ---
INDICATION: Head injury. COMPARISON: There are no relevant prior studies available for comparison. TECHNIQUE: Contiguous axial sections of the brain were obtained from the skull base to the vertex without contrast. FINDINGS: The ventricles, cisterns and sulci are within normal limits. No significant focal abnormality or mass effect is seen. There is no evidence for hemorrhage. No significant focal osseous abnormality is seen. The visualized portion of the paranasal sinuses and mastoid air cells appear clear. IMPRESSION: NO EVIDENCE FOR ACUTE INTRACRANIAL ABNORMALITY.
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
[2018-09-02 07:42] VITALS: BP 110/65
== END | disposition home or self-care (01) ==
LOC: ED 12:57
DX: S09.90XA Unspecified injury of head, initial encounter (principal); W34.09XA Accidental discharge from other specified firearms, initial encounter; Y92.9 Unspecified place or not applicable
CPT/HCPCS: 70450; 99281

== ENCOUNTER 2019-04-09 09:34 | Emergency (ER) | payer OTHER ==
--- OUTSIDE RECORDS SUMMARY | 2019-04-09 10:36 | XMS REPORT | Continuity of Care Document ---
:1990 Author Organization [facility] Address [address], [place] [id number] Phone Care Team Providers Name Role Phone Jeanne Park NP Unavailable Unavailable [facility], NURSE OR [place] Unavailable Unavailable Allergies, Adverse Reactions, Alerts Substance Reaction Status amoxicillin Hives/Skin Rash Active shellfish derived Hives/Skin Rash Active Medications Medication Instructions Dosage Effective Dates Status Comments (start - stop) Depo-Provera 150 IM Q 11-13 weeks - Active mg/mL intramuscular suspension WELLBUTRIN SR Not Available - Active (unknown strength) PAXIL (unknown Not Available - Active strength) Problems Condition Effective Dates Clinical Status Comments (start - stop) Encounter for surveillance of injectable contraceptive Human immunodeficiency virus - [HIV] counseling Body mass index (BMI) 22.0-22.9, adult Personal history of oth diseases of the female genital tract Encounter for surveillance of injectable contraceptive Encounter for surveillance of injectable contraceptive Encounter for elective termination of Encounter for initial prescription of injectable contracep Less than 8 weeks gestation of Displacement of intrauterine contraceptive device, subs Human immunodeficiency virus - [HIV] counseling Encntr screen for dis of the bld/bld-form org/immun mechn Encounter for test, result positive Encntr screen for infections w sexl mode of transmiss Encounter for oth general cnsl and advice on contraception Encounter for initial prescription of uterin contracep dev Less than 8 weeks gestation of RhD positive Active Abstracted from paper chart: CDD 10/15 Procedures Procedure Date INJECTION DEPO/CEFTRIAXONE INJECTION OR LAB ONLY VISIT EST PREVENTIVE COUNSELING, Under 8 Minutes OTHER Medical Services Contraceptive DEPO Results Test Name Date and Time Measure Units Reference Range Abnormal Flag Status Comments No information Advance Directives Directive Yes / No Effective Date File Name No information Encounters Encounter Practice Location Reason(s) Diagnoses Date Provider Providers Description For Visit Copied on Encounter [facility] Encounter for [facility] Referring [facility] [place] surveillance of Jeanne. Provider: [facility] injectable [address] contraceptiveHuman [place] White, [address], [address] [place] virus [HIV] [place], [place], [place], [place], counseling [place], [place], [address], [place], [id number], [place]. [phone].Cons [place] ulting tel:+ Provider: [id number] NURSE [place] [facility]. [facility] Body mass index [facility] 22.0-22.9, [place]. Provider: [facility] adultPersonal [address] history of oth [place], [place], [address], [address] female genital [place], [address], [address], [place], tract [place], [place], [address]. [place], [address]. [id number], tel:+ tel:[phone] tel:[phone] [facility]. Provider: [facility] injectable 9 [address] contraceptive Chinik White, [address], [address] [place] W Chinik [place], St, St, [place], [place], [place], [address], [place], [address]. [id number], [place]. [place] tel:[phone] [facility] Encounter for White Referring [facility] [place] surveillance of Jeanne. Provider: [facility] injectable [address] contraceptive Chinik White, [address], [address] [place] W [place], St, St, [place], [place], [place], [address], [place], [id number], [place]. [phone].Cons [place] ulting tel:[phone] Provider: [id number] NURSE [place] [facility]. [facility] Encounter for Kerri Referring Parenthood [place] elective 0-[address]. Provider: Lane termination of 8 [address] pregnancyEncounter Nate Carr, [address], [address] prescription of [place], [address], St, [place], injectable [place], [place], [place], contracepLess [place] [address]. [place], [address]. [id number], 8 weeks gestation tel:[phone] tel:[phone] [place] of [phone] tel:[phone] pregnancyDisplaceme [id number] nt of intrauterine contraceptive device, subs [facility] Human [place] Referring Parenthood [place] immunodeficiency 7-[address]. Provider: Lane virus [HIV] 8 [address] counselingEncntr Nate Zepeda, [address], [address] the bld/bld-form [place], [address], St, [place], org/immun [place], [place], [place], mechnsmEncounter [address]. [place], [address]. [id number], for test, tel:[phone] tel:[phone] [place] result [phone] tel:[phone] positiveEncntr [id number] screen for infections w sexl mode of transmissEncounter for oth general cnsl and advice on contraceptionEncoun ter for initial prescription of uterin contracep devLess than 8 weeks gestation of Family History Family Member Diagnosis Age At Onset Family history of Cancer, breast 1st degree relative No hx of venous thromboembolism Family history of Ovarian Cancer 1st degree relative No hx of osteoporosis Father Coronary heart disease before age 55 41 1st degree relative No hx of cancer of breast, colon, endometrium or ovary Immunizations Vaccine Date Status Comments No information Payers Payer name Insurance type Covered green party ID Authorization(s) Arsenio ZAR[employer] [facility] CI [id number] Social History Type Description Quantity Date Captured Comments Alcohol Use Details Unknown Caffeine Use Details Unknown Tobacco Use Status Current non-smoker Smoking Status Never smoker Non-Smoking Tobacco : No Details Available : No Details Available 2018 Use Details Sex Female Vital Signs Date / Height Weight BMI Pulse Blood Temperature Respiratory Body Head BMI Pulse Inhaled Time: Rate Pressure Rate Surface Circumference percentile Ox Ox Area No information Chief Complaint And Reason For Visit No information Reason For Referral Reason For Referral No information Plan Of Treatment Date Type Action Status Appointment PEÑA LOVE BOOKED History Of Present Illness Encounter Date Complaint History Of Present Illness No information Functional Status Date Functional Assessment No information Medications Administered Medication Instructions Dosage Effective Dates (start - stop) Status Comments No information Instructions Date Instruction Additional Information No information Assessments Type Assessment Date assessment Encounter for surveillance of injectable contraceptive assessment Human immunodeficiency virus [HIV] counseling Goals Health Concern Goal Type Priority Status Date No information Medical Equipment Description Device [place] Device Identifier Effective Dates (start - stop ) Status No information Mental Status Date Cognitive Assessment No information Health Concerns Observation Date No information Concern Status Date No information
[2019-04-09] MEDS ORDERED: Ondansetron INJ* 2 MG/ML VIAL IV ONE (10:41)
[2019-04-09] MEDS ORDERED: NS 0.9% 1000 ML** 1,000 ML IV ONE (10:41)
--- NOTE | 2019-04-09 10:41 | ED ---
Nausea/Vomiting/Diarrhea HPI - HPI Summary HPI Summary: Patient presenting with nausea, vomiting and diarrhea that started yesterday. Patient states she only ate chicken wings at work yesterday and believes he made her sick. Associated symptoms of mild diffuse abdominal cramping. Denies passing blood in stools or vomit. Denies fever. Pt. notes she has not been able to keep down fluids since yesterday. Symptoms are mild to moderate in severity. No current modifying factors. Patient denies past medical history other than mental health. - History of Current Complaint Chief Complaint: EDYadirauseaVomitDiarrh Stated Complaint: I THINK I HAVE FOOD POISONING PER Time Seen by Provider: 04/09/19 10:14 Hx Obtained From: Patient Hx Last Menstrual Period: Mirena IUD Pain Intensity: 7 - Allergies/Home Medications Allergies/Adverse Reactions: Allergies Allergy/AdvReac Type Severity Reaction Status Date / Time amoxicillin Allergy Rash And Verified 04/09/19 09:51 Itching bee venom protein (honey bee) Allergy Localized Verified 04/09/19 09:51 Swelling shellfish derived Allergy Itching Verified 04/09/19 09:51 Home Medications: Home Medications Bupropion XL* [Wellbutrin XL *] 100 mg PO DAILY 04/09/19 [History Confirmed 02/22] PMH/Surg Hx/FS Hx/Imm Hx Previously Healthy: Yes Endocrine/Hematology History: Denies: Hx Anticoagulant Therapy, Hx Blood Disorders Respiratory History: Reports: Hx Asthma - sports induced - Surgical History Surgery Procedure, Year, and Place: Ear tubes ,. t/a Infectious Disease History: No Infectious Disease History: Denies: Hx Clostridium Difficile, Hx Hepatitis, Hx Human Immunodeficiency Virus (HIV), Hx of Known/Suspected MRSA, Hx Shingles, Hx Tuberculosis, Hx Known/ Suspected VRE, Hx Known/Suspected VRSA, History Other Infectious Disease, Traveled Outside the [place] in Last 30 Days - Family History Known Family History: Positive: Non-Contributory Negative: Cardiac Disease, Hypertension, Diabetes, Renal Disease - Social History Occupation: Employed Full-time Lives: With Family Alcohol Use: Rare Substance Use Type: Reports: None Smoking Status (MU): Former Smoker Length of Time of Smoking/Using Tobacco: 2 yrs Have You Smoked in the Last Year: No Review of Systems Constitutional: Negative Negative: Fever, Chills ENT: Negative Cardiovascular: Negative Respiratory: Negative Positive: Abdominal Pain, Vomiting, Diarrhea, Nausea Genitourinary: Negative Skin: Negative Neurological: Negative All Other Systems Reviewed And Are Negative: Yes Physical Exam Triage Information Reviewed: Yes Vital Signs On Initial Exam: Initial Vitals Temp Pulse Resp BP Pulse Ox 98.8 F 58 16 111/64 100 04/09/19 09:48 04/09/19 09:48 04/09/19 09:48 04/09/19 09:48 04/09/19 09:48 Vital Signs Reviewed: Yes Appearance: Positive: Well-Appearing - Pt. lying in bed in NAD. Skin: Positive: Warm, Dry Head/Face: Positive: Normal Head/Face Inspection Eyes: Positive: Normal, EOMI, MAXINE Neck: Positive: Supple Respiratory/Lung Sounds: Positive: Clear to Auscultation, Breath Sounds Present Cardiovascular: Positive: Normal, RRR Abdomen Description: Positive: Nontender, Soft Neurological: Positive: Normal, CN Intact II-III Psychiatric: Positive: Affect/Mood Appropriate Diagnostics - Vital Signs Vital Signs Temp Pulse Resp BP Pulse Ox 04/09/19 10:02 101/73 04/09/19 09:48 98.8 F 58 16 111/64 100 - Laboratory Result Diagrams: 04/09/19 10:54 04/09/19 10:54 Lab Statement: Any lab studies that have been ordered have been reviewed, and results considered in the medical decision making process. Naus/Vom/Diarrhea Course/Dx - Course Course Of Treatment: Patient presenting with vomiting, diarrhea and abdominal cramping. She is afebrile with stable vital signs. She is benign abdominal exam without reproducible pain. Patient was given IV fluids and Zofran. Basic blood work is unremarkable. Suspect viral etiology. Advised to increase fluids and rest. Clear liquid diet 24 hours. To follow-up with PCP if symptoms persist and return to the ER symptoms change or worsen. Patient understands and agrees. - Differential Dx/Diagnosis Differential Diagnoses - Female: Appendicitis, Constipation, Gastroenteritis ( Viral), Gastroenteritis (Bacterial), Vomiting, Diarrhea, Dehydration Provider Diagnosis: Gastroenteritis Condition At Discharge: Improved Discharge - Sign-Out/Discharge Documenting (check all that apply): Patient Departure Patient Received Moderate/Deep Sedation with Procedure: No - Discharge Plan Condition: Improved Disposition: HOME Prescriptions: Ondansetron TAB* [Zofran 4 MG Tab*] 4 mg PO Q6H PRN #12 tab PRN Reason: Nausea Patient Education Materials: Gastroenteritis (ED) Forms: *Work Release Referrals: [facility] [Outside] Additional Instructions: Follow up with the [facility] if symptoms persist Increase fluids with water and Gatorade Clear liquid diet x 24 hours Return to ER if symptoms change or worsen - Billing Disposition and Condition Condition: IMPROVED Disposition: Home
[2019-04-09 11:11] LABS: ABS Eosinophils 0.1 10^3/ul (0-0.6); ABS Lymphocytes 1.7 10^3/ul (1.0-4.8); ABS Monocytes 0.4 10^3/ul (0-0.8); ABS Neutrophils 2.3 10^3/ul (1.5-7.7); Eosinophil % 1.5 %; Hematocrit 41 % (35-47); Hemoglobin 13.7 g/dL (12.0-16.0); Lymphocyte % 37.6 %; Mean Corpuscular HGB Conc 34 g/dL (31-36); Mean Corpuscular Hemoglobin 33 pg (27-31); Mean Corpuscular Volume 97 fL (80-97); Mean Platelet Volume 9.7 fL (7.4-10.4); Nucleated Red Blood Cells % 0.1; Platelet Count 161 10^3/uL (150-450); Red Cell Distribution Width 13 % (10.5-15); White Blood Count 4.6 10^3/uL (3.5-10.8)
[2019-04-09 11:22] LABS: ALT 13 U/L (7-52); AST 15 U/L (13-39); Albumin 4.3 g/dL (3.2-5.2); Albumin/Globulin Ratio 1.7 (1-3); Alkaline Phosphatase 59 U/L (34-104); Anion Gap 5 mmol/L (2-11); BUN/Creatinine Ratio 18.8 (8-20); Blood Urea Nitrogen 15 mg/dL (6-24); CO2 Carbon Dioxide 22 mmol/L (22-32); Calcium 9.4 mg/dL (8.6-10.3); Chloride 111 mmol/L (101-111); EGFR African American 101.9 (>60); EGFR Non-African American 84.2 (>60); Globulin 2.5 g/dL (2-4); Glucose 84 mg/dL (70-100); Potassium 4.1 mmol/L (3.5-5.0); Sodium 138 mmol/L (135-145); Total Protein 6.8 g/dL (6.4-8.9)
[2019-04-09 11:27] LABS: HCG Pregnancy < 0.60 mIU/mL
[2019-04-09 11:45] VITALS: BP 104/62
== END 2019-04-09 11:44 | disposition home or self-care (01) ==
LOC: ED 09:34
DX: K52.9 Noninfective gastroenteritis and colitis, unspecified (principal); Z87.891 Personal history of nicotine dependence
CPT/HCPCS: 36415; 80053; 83690; 84702; 85025; 96361; 96374; 99282; J2405

== ENCOUNTER 2019-08-18 11:51 | Emergency (ER) | payer OTHER ==
--- OUTSIDE RECORDS SUMMARY | 2019-08-18 12:08 | XMS REPORT | Continuity of Care Document ---
:1990 External Reference #:[id number] Author Name Indu Coyle M.D. 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 [phone] Medicine Problems Active Problems Provider Date Anxiety state Nora Marker, RPA-C Onset: 12/21/2018 Low back pain Nora Marker, RPA-C Onset: 12/21/2018 Exercise-induced asthma Nora Marker, RPA-C Onset: 12/21/2018 Polycystic ovaries Nora Marker, RPA-C Onset: 12/21/2018 Social History Type Date Description Comments Sex Unknown Tobacco Use Start: Unknown Former Cigarette Smoker Light smoking <1 End: Unknown cigarette/day for 2 years Smoking Status Reviewed: 06/26/19 Former Cigarette Smoker Light smoking <1 cigarette/day for 2 years ETOH Use Currently consumes Infrequent alcohol Tobacco Use Start: Unknown Patient is a former End: Unknown smoker Recreational Drug Use Denies Drug Use Exercise Type/Frequency Exercises sporadically Allergies, Adverse Reactions, Alerts Active Allergies Reaction Severity Comments Date Amoxicillin 12/21/2018 Shellfish-derived Products no allergy to iodine 12/21/2018 Medications Active Medications SIG Qnty Indications Ordering Date Provider Princessfrbritni as needed for 14tabs B27.90 Indu Leonides, 06/26/2019 4mg Tablets nausea twice a day M.D. Wellbutrin SR 1 by mouth once a 90tabs F41.9 Indu Leonides, 12/21/2018 100mg day M.D. Tablets ER 12HR Depo - 1 shot every 3 Unknown Control months Paroxetine HCL 1 by mouth every 90tabs Indu Leonides, 40mg day M.D. Tablets Ventolin HFA 2 puffs by mouth 10 16gm Indu Coyle, minutes before M.DElizabeth 108(90Base) mcg/Act exercising Aerosol Immunizations Description No Information Available Vital Signs Date Vital Result Comment 06/26/2019 1:52pm Height 67.75 inches 5'7.75" Weight 135.38 lb Heart Rate 103 /min BP Systolic Sitting 99 mmHg Rue reg cuff BP Diastolic Sitting 71 mmHg Rue reg cuff Body Temperature 97.2 F O2 % BldC Oximetry 99 % BMI (Body Mass Index) 20.7 kg/m2 01/18/2019 8:34am Height 67.75 inches 5'7.75" Weight 149.00 lb with shoes Heart Rate 70 /min BP Systolic 96 mmHg BP Diastolic 60 mmHg O2 % BldC Oximetry 98 % BMI (Body Mass Index) 22.8 kg/m2 Results Test Date Facility Test Result H/L Range Note Order 01/01/2019 [facility] In-House Holter Monitor <pending> Procedures Date Code Description Status 01/01/2019 61738 ECG Monitor/Recording W/Visual Superimposition Scanning Completed Medical Devices Description No Information Available Encounters Type Date Location Provider Dx Diagnosis Office Visit 06/26/2019 [facility] Indu Coyle, B27.90 [facility] mon[facility], unspecified without complication F41.9 Anxiety disorder, unspecified R19.7 Diarrhea, unspecified Office Visit 01/18/2019 8:40a [facility] Nora F41.9 Anxiety disorder , Medicine - [address], RPA-C unspecified R Assessments Date Code Description Provider 06/26/2019 B27.90 Infectious mononucleosis, unspecified Indu Coyle M.D. without complication 06/26/2019 F41.9 Anxiety disorder, unspecified Indu Coyle M.D. 06/26/2019 R19.7 Diarrhea, unspecified Indu Coyle M.D. 01/18/2019 F41.9 Anxiety disorder, unspecified Nora Marker, RPA-C 01/01/2019 R00.2 Palpitations Im Nurse Holter Monitor 01/01/2019 R42 Dizziness and giddiness Im Nurse Holter Monitor Plan of Treatment Future Appointment(s):12/25/2019 2:00 pm - [facility]du [facility] M[facility] - Indu Coyle M.D.B27.90 Infectious mononucleosis, unspecified without complicationNew Medication:Zofran 4 mg - as needed for nausea twice a dayF41.9 Anxiety disorder, sxkgwctpbkmC72.7 Diarrhea, unspecified Functional Status Description No Information Available Mental Status Description No Information Available Referrals Description No Information Available
--- OUTSIDE RECORDS SUMMARY | 2019-08-18 12:08 | XMS REPORT | Continuity of Care Document ---
:1990 External Reference #:[id number] Author Name Indu Coyle M.D. 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, unspecified without complication F41.9 Anxiety disorder, unspecified R19.7 Diarrhea, unspecified Office Visit 01/18/2019 8:40a [facility] Nora F41.9 Anxiety disorder , Medicine [...] 2:00 pm - Indu Coyle M.D. at [facility] - Indu Coyle M.D.B27.90 Infectious mononucleosis, unspecified without complicationNew Medication:Zofran 4 mg - as needed for nausea twice a dayF41.9 Anxiety disorder, dpzscwkufwoD23.7 Diarrhea, unspecified Functional Status Description No Information Available Mental Status Description No Information Available Referrals Description No Information Available
--- NOTE | 2019-08-18 12:38 | ED ---
Complex/Multi-Sys Presentation - HPI Summary HPI Summary: 29 year old F brought in by EMS to [facility] accompanied by and sister complains of intermittent episodes of nausea/vomiting after which she becomes diaphoretic then has chills since waking up at 08:30 today 08/18/19. states that patient was fine yesterday 08/17/19. states that they went hunting yesterday 08/17/19. states that they drank soda and ate pizza at 19:30 yesterday 08/17/19 which was the last meal she had. states that patient woke up this morning at 08:30 today 08/18/19 and was nauseous and vomiting bile and yellow vomit. states patient was dry heaving. Patient reports diarrhea which was brown this morning then became green/yellow. Patient states she is unsure if her diarrhea is foul smelling. Patient reports lower abdominal pain radiating into her bilateral scapula. Patient reports chest tightness and dyspnea. Denies hematemesis, bloody stools. Denies urinary symptoms including increased frequency, pain/burning with urination, hematuria. Denies fever, rash, headache. Patient states she has never had symptoms like these before. Patient states she has not taken her daily medications today 08/18. Patient states she took Zofran this morning, 5 minutes after which she vomited it up. The patient rates the pain 6/10 in severity. Symptoms aggravated by nothing. Symptoms alleviated by nothing. Patient states that at the end of June 2019, she was seen at [facility], was sent to the ED to get blood work done which was normal. Patient states that [facility] called her the next day stating that she had possible pancreatitis, was referred to ED where she went and was diagnosed with mono. Patient states that she is out in the [place]. She states that she noticed a tick on her neck 2 weeks ago while itching her neck which wasn't embedded into her neck so she pulled it off like it was a scab. Patient states she has not had follow up for this. Denies rash currently. Patient states that 2 weeks ago, she was diagnosed with respiratory infection and bilateral ear infection for which she did not take antibiotics. LN May 2018. Patient states she is on Depo. A1. PMHx: sports-induced asthma, anxiety, depression, "mild" PCOS. Denies PMHx ovarian cyst. Denies gallbladder problems. Denies abdominal surgical Hx. Surgical Hx: T&A. FHx: cardiac disease, asthma, allergies. Primary care provider is [facility]. Vital signs while in room: HR 78 BPM, BP 118/69, O2 sat 100%, temporal temperature 97.7 F Home Medications Medication Instructions Recorded Confirmed Type PARoxetine HCl [Paxil] 40 mg PO DAILY 12/01/16 08/18/19 History Bupropion XL* [Wellbutrin XL *] 100 mg PO DAILY 04/09/19 08/18/19 History - History Of Current Complaint Chief Complaint: EDNauseaVomitDiarrh Time Seen by Provider: 08/18/19 12:28 Hx Obtained From: Patient, Family/[employer] Worker - Onset/Duration: Sudden Onset, Lasting Hours - 08:30 today 08/18/19, Still Present Timing: Intermittent, Lasting: Severity Currently: Moderate - 04/15 Severity Initially: Moderate Location: Pain At: - lower abdomen, Radiates To: - bilateral scapulae Character: Sharp Aggravating Factor(s): Nothing Alleviating Factor(s): Nothing Associated Signs And Symptoms: Positive: SOB, Chest Pain, Vomiting, Diarrhea, Abdominal Pain, Back Pain - bilateral, Other - diarrhea, dry heaving, diarrhea, lower abdominal pain, chest tightness, dyspnea; NEGATIVE: hematemesis, bloody stools, urinary symptoms including increased frequency, pain/burning with urination, hematuria, fever, rash, headache - Allergies/Home Medications Allergies/Adverse Reactions: Allergies Allergy/AdvReac Type Severity Reaction Status Date / Time amoxicillin Allergy Rash And Verified 08/18/19 11:55 Itching bee venom protein (honey bee) Allergy Localized Verified 08/18/19 11:55 Swelling shellfish derived Allergy Itching Verified 08/18/19 11:55 PMH/Surg Hx/FS Hx/Imm Hx Previously Healthy: No Endocrine/Hematology History: Denies: Hx Anticoagulant Therapy, Hx Blood Disorders Respiratory History: Reports: Hx Asthma - sports induced History: Reports: Other Problems/Disorders - PCOS Psychiatric History: Reports: Hx Anxiety, Hx Depression - Surgical History Surgical History: Yes Surgery Procedure, Year, and Place: Ear tubes ,. t/a Infectious Disease History: No Infectious Disease History: Denies: Hx Clostridium Difficile, Hx Hepatitis, Hx Human Immunodeficiency Virus (HIV), Hx of Known/Suspected MRSA, Hx Shingles, Hx Tuberculosis, Hx Known/ Suspected VRE, Hx Known/Suspected VRSA, History Other Infectious Disease, Traveled Outside the [place] in Last 30 Days - Family History Known Family History: Positive: Cardiac Disease, Respiratory Disease - asthma, Other - allergies Negative: Hypertension, Diabetes, Renal Disease - Social History Lives: With Family Alcohol Use: Rare Hx Substance Use: No Substance Use Type: Reports: None Hx Tobacco Use: Yes Smoking Status (MU): Former Smoker Length of Time of Smoking/Using Tobacco: 2 yrs Have You Smoked in the Last Year: No Review of Systems Positive: Chills, Skin Diaphoresis. Negative: Fever Positive: Other - chest tightness Positive: Shortness Of Breath Gastrointestinal: Negative - hematemesis, bloody stools Positive: Abdominal Pain - lower, Vomiting, Diarrhea, Nausea, Other - dry heaving Positive: no symptoms reported. Negative: burning, frequency, hematuria, pain Negative: Rash Negative: Headache Psychological: Normal All Other Systems Reviewed And Are Negative: Yes Physical Exam - Summary Physical Exam Summary: Appearance: Ill-appearing, moderate pain distress, well-nourished. She is belching and having chills on exam. Her temporal temperature is 97.7 F taken in room. Skin: Warm, color reflects adequate perfusion, dry Head: atraumatic. Hirsutism Eyes: Conjunctiva clear ENT: Normal inspection Neck: Supple, no nodes, no JVD Respiratory: Lungs clear, normal breath sounds, no respiratory distress Cardio: RRR, No murmur, pulses normal, brisk capillary refill. She has chest discomfort that is reproducible on palpation. Abdomen: Soft. No RUQ tenderness. There is RLQ and LLQ tenderness which is worse on the right than the left. No rebound, no guarding, no masses, non- distended. She has an umbilical piercing. Bowel sounds: Present Musculoskeletal: Strength Intact/ROM intact, no calf tenderness, no edema. Psychological: Normal Neuro: Alert, muscle tone normal, no focal deficit Triage Information Reviewed: Yes Vital Signs On Initial Exam: Initial Vitals Temp Pulse Resp BP Pulse Ox 97.7 F 68 19 130/68 100 08/18/19 11:53 08/18/19 11:53 08/18/19 11:53 08/18/19 11:53 08/18/19 11:53 Vital Signs Reviewed: Yes Procedures - Sedation Patient Received Moderate/Deep Sedation with Procedure: No Diagnostics - Vital Signs Vital Signs Temp Pulse Resp BP Pulse Ox 08/18/19 11:53 97.7 F 68 19 130/68 100 - Laboratory Result Diagrams: 08/18/19 13:30 08/18/19 13:31 Lab Statement: Any lab studies that have been ordered have been reviewed, and results considered in the medical decision making process. - Radiology CXR Radiology Interpretation Completed By: Radiologist Summary of Radiographic Findings: No active cardiopulmonary disease is noted. ED physician has reviewed this report. - CT Abd/Pel CT Interpretation Completed By: Radiologist Summary of CT Findings: Fluid-filled loops of bowel are noted in the colon. The possibility of colitis or gastroenteritis should be considered. Normal appendix is not clearly identified. Cholelithiasis without biliary duct dilatation. Small amount of free fluid is noted in the pelvis. ED physician has reviewed this report. - Ultrasound Appendix Ultrasound Interpretation Completed By: Radiologist Summary of Ultrasound Findings: Appendix not visualized. Follicle in the right ovary measures up to 2.5 cm. ED physician has reviewed this report. Re-Evaluation - Re-Evaluation First Eval Re-Evaluation Time: 14:38 Change: Improved Comment: nausea is gone. pain is at a 5/10. she requests pain meds. upon re- exam, abdomen is still with guarding, no rebound in RLQ Second Eval Re-Evaluation Time: 17:24 Change: Improved Comment: patient looks better. she is ready to try PO. abdominal pain has improved. upon re-exam, patient has no guarding, no rebound, minimal abdominal tenderness Third Eval Re-Evaluation Time: 18:20 Change: Improved Comment: patient able to tolerate PO. she was given copies of CT and US. she understands discharge instructions Complex Multi-Symp Course/Dx Course Of Treatment: 29 year old F complains of intermittent episodes of nausea/ vomiting after which she becomes diaphoretic then has chills since waking up at 08:30 today 08/18/19. reports dry heaving. Patient reports diarrhea, lower abdominal pain radiating into her bilateral scapula, chest tightness, dyspnea. Upon exam, the patient has RLQ and LLQ tenderness which is worse on the right than the left. Patient medications reviewed this visit. Nurses notes reviewed. Allergies noted. High blood pressure noted. Bloodwork results with no significant abnormalities except for WBC 18.1, MCH 33, absolute neuts 16.2, absolute lymphs 0.5, absolute monos 1.3, chloride 117, carbon dioxide 21, BUN/creatinine 28.2, glucose 119, magnesium 1.6, AST 12, total protein 6.2, amylase 21, lipase 10. Urinalysis not obtained. Lyme serologies ordered and pending at time of discharge. CXR shows, per radiologist: No active cardiopulmonary disease is noted. US appendix shows, per radiologist: Appendix not visualized. Follicle in the right ovary measures up to 2.5 cm. In the ED course, the patient was given normal saline IV, Toradol 30 mg IV, Zofran 8 mg IV. She was also given morphine 4 mg IV and magnesium 1gm IV. Patient has elevated white blood cell count. Her appendix was not visualized on ultrasound. Will order CT Abd/Pel with contrast. Pt and understand that this is radiation, and agree to continued evaluation of her pain, V, D. CT Abd/Pel shows, per radiologist: Fluid-filled loops of bowel are noted in the colon. The possibility of colitis or gastroenteritis should be considered. Normal appendix is not clearly identified. Cholelithiasis without biliary duct dilatation. Small amount of free fluid is noted in the pelvis. Patient is able to tolerate PO. Patient will be discharged home with follow up from Nora Ashraf, primary care provider, in 2 days. She understands that Lyme serology results are pending at time of discharge. She was advised to go on a BRAT diet. Patient was instructed to return to Emergency Department for new or worsening symptoms. Patient understands and is agreeable to this plan. - Diagnoses Provider Diagnoses: Gastroenteritis, Colitis, Cholelithiasis, Hypomagnesemia Discharge ED - Sign-Out/Discharge Documenting (check all that apply): Patient Departure - Discharge - Discharge Plan Condition: Stable Disposition: HOME Prescriptions: Ondansetron ODT TAB* [Zofran 4 MG Odt TAB*] 4 mg PO Q6H PRN #10 tab.odt PRN Reason: Nausea Patient Education Materials: Gallstones (ED), Gastroenteritis (ED), Colitis (ED ) Forms: *Work Release Referrals: Nora Ashraf PA [Primary Care Provider] - 2 Days Additional Instructions: We have given you a copy of your CT, and your ultrasound. Neither test showed definite appendicitis, but the CT did show evidence of colitis. Your white blood cell count is elevated at 18, which can be due to the colitis, but will need further monitoring. You should use the BRAT diet until you feel better. Your CT scan did show gallstones, but they are not inflamed at this time. Your Lyme serologies are pending at the time of discharge. Be sure to have your primary care provider follow up on those results. Return to the Emergency Department for new or worsening symptoms. - Billing Disposition and Condition Condition: STABLE Disposition: Home - Attestation Statements Document Initiated by Shawna: Yes Documenting Scribe: July Spencer Provider For Whom Shawna is Documenting (Include Credential): Christine Carbajal MD Scribe Attestation: July Ahn, scribed for Christine Carbajal MD on 09/04/19 at 2146. Scribe Documentation Reviewed: Yes Provider Attestation: The documentation as recorded by the July mccollum accurately reflects the service I personally performed and the decisions made by , Christine Carbajal MD Status of Scribe Document: Viewed
[2019-08-18] MEDS ORDERED: NS 0.9% 1000 ML** 2,000 ML IV SCH (12:45)
[2019-08-18] MEDS ORDERED: Ondansetron INJ* 2 MG/ML VIAL IV ONE (13:19)
[2019-08-18] MEDS ORDERED: Ketorolac INJ* 30 MG/ML 1 ML VIAL IV ONE (13:20)
[2019-08-18 13:37] LABS: ABS Lymphocytes 0.5 10^3/ul (1.0-4.8); ABS Monocytes 1.3 10^3/ul (0-0.8); ABS Neutrophils 16.2 10^3/ul (1.5-7.7); Eosinophil % 0.2 %; Hematocrit 39 % (35-47); Hemoglobin 13.1 g/dL (12.0-16.0); Lymphocyte % 2.7 %; Mean Corpuscular HGB Conc 34 g/dL (31-36); Mean Corpuscular Hemoglobin 33 pg (27-31); Mean Corpuscular Volume 97 fL (80-97); Mean Platelet Volume 9.7 fL (7.4-10.4); Platelet Count 170 10^3/uL (150-450); Red Blood Count 3.99 10^6 /uL (3.70-4.87); Red Cell Distribution Width 13 % (10-15); White Blood Count 18.1 10^3/uL (3.5-10.8)
[2019-08-18 13:57] LABS: ALT 11 U/L (7-52); AST 12 U/L (13-39); Albumin 3.9 g/dL (3.2-5.2); Albumin/Globulin Ratio 1.7 (1-3); Alkaline Phosphatase 54 U/L (34-104); Amylase 21 U/L (29-103); BUN/Creatinine Ratio 28.2 (8-20); Blood Urea Nitrogen 22 mg/dL (6-24); C Reactive Protein < 1.00 mg/L (<8.01); CO2 Carbon Dioxide 21 mmol/L (22-32); Calcium 8.6 mg/dL (8.6-10.3); EGFR African American 104.9 (>60); EGFR Non-African American 86.7 (>60); Globulin 2.3 g/dL (2-4); Glucose 119 mg/dL (70-100); Magnesium 1.6 mg/dL (1.9-2.7); Potassium 3.5 mmol/L (3.5-5.0); Sodium 141 mmol/L (135-145); Total Protein 6.2 g/dL (6.4-8.9)
[2019-08-18] MEDS ORDERED: Magnesium Sulfate 1 GM IV* 1 GM/100 ML BAG IV ONE (14:33)
[2019-08-18 14:35] LABS: Anion Gap 3 mmol/L (2-11); Chloride 117 mmol/L (101-111)
[2019-08-18] MEDS ORDERED: Morphine 4 MG/ML VIAL (1 ml) 4 MG/ML VIAL IV ONE (14:41)
[2019-08-18] MEDS ORDERED: Iohexol 300* (CONTRAST) 10 ML SDV IV ONE (14:49)
[2019-08-18 18:39] VITALS: BP 90/61
== END 2019-08-18 18:40 | disposition home or self-care (01) ==
LOC: ED 11:51
DX: K52.9 Noninfective gastroenteritis and colitis, unspecified (principal); K80.20 Calculus of gallbladder without cholecystitis without obstruction; R10.31 Right lower quadrant pain; R10.32 Left lower quadrant pain; R03.0 Elevated blood-pressure reading, without diagnosis of hypertension; R05 Cough; R07.89 Other chest pain; R06.00 Dyspnea, unspecified; Z88.8 Allergy status to other drugs, medicaments and biological substances; Z91.030 Bee allergy status; Z88.0 Allergy status to penicillin; Z91.013 Allergy to seafood; Z87.891 Personal history of nicotine dependence
CPT/HCPCS: 36415; 71046; 74177; 76705; 80053; 82150; 83690; 83735; 85025; 86140; 86618; 96361; 96365; 96375; 99282; J1885; J2270; J2405; J3475; Q9967